=== PATIENT | female | born 1965 | race Two or more races ===

== ENCOUNTER → 2024-09-10 | Outpatient (CLI) | payer MEDICAID, SELFPAY ==
--- NOTE | 2024-09-10 12:44 | XR_ITS ---
Examination: Breast ultrasound, unilateral, left Date and time of exam: September 10, 2024 1303 hours INDICATIONS: Mammogram December 31, 2022 6:00 nodule 13 mm, left breast sonogram October 21, 2023 multiple nodules including 3:00 nodule 9 x 8 mm and 6:00 nodule 9 x 8 mm Technique: Real-time jonse scale ultrasonographic imaging performed left breast including all 4 quadrants as well as nipple retroareolar and axillary region. Findings: 6:00 oval mass circumscribed 6 x 6 mm 6:00 oval mass circumscribed 4 x 3 mm 10:00 cyst 5 x 4 mm 2:00 nodule lobular margins 9 x 5 mm 2:00 nodule 5 x 4 mm IMPRESSION: BI-RADS Category 3: Probably benign findings Continued 6 month left breast sonogram follow-up sonogram recommended to document stability of multiple solid nodules described above
--- NOTE | 2024-09-10 13:20 | XR_ITS ---
Examination: Diagnostic digital mammography, bilateral Computer aided detection 3-D breast Tomosynthesis, bilateral Date and time of exam: September 10, 2024 1335 hours INDICATIONS: Mammogram October 21, 2023 6:00 nodule 9 mm left breast Technique: Nonmagnified MLO, CC views of the breasts to been obtained, reconstructed from 3-D Tomosynthesis images. R2 computer aided detection program utilized for evaluation of suspicious masses and/or abnormal calcifications. 3-D Tomosynthesis images obtained. Findings: Scattered areas of fibroglandular density Stable nodules nipple level left breast and inner left breast on the CC view 6:00 and 2:00 benign nodules noted on left breast sonogram today Impression: BI-RADS Category 3: Probably benign findings One additional 6 month left mammogram follow-up is needed to document stability of nodules described above.
== END | disposition home or self-care (01) ==
PROVIDERS: PCP Family Medicine; Referring Provider Family Medicine; Visit Provider Family Medicine
DX: N63.25 Unspecified lump in the left breast, overlapping quadrants (principal); N63.21 Unspecified lump in the left breast, upper outer quadrant; N60.02 Solitary cyst of left breast
CPT/HCPCS: 76641; 77062; 77066; G0279

== ENCOUNTER → 2024-10-11 | Outpatient (CLI) | payer MEDICAID, SELFPAY ==
--- NOTE | 2024-10-11 15:00 | XR_ITS ---
Examination: Venous duplex lower extremity sonogram, bilateral. Date and time of exam: October 11, 2024 1452 hours INDICATIONS: Onset right leg pain beginning 3 years ago Technique: Multiple sonographic images of the deep venous system have been obtained. B-mode/2-D grayscale imaging of vascular structures and Doppler spectral analysis (waveforms) and color performed Both legs are examined. Findings: Deep venous systems do not demonstrate abnormal echogenicity. All visualized deep veins exhibit compressibility. All visualized deep veins exhibit augmentation. Impression: Negative for deep vein thrombosis
== END | disposition home or self-care (01) ==
PROVIDERS: PCP Family Medicine; Referring Provider Family Medicine; Visit Provider Family Medicine
DX: R60.0 Localized edema (principal)
CPT/HCPCS: 93970

== ENCOUNTER → 2024-12-27 | Outpatient (CLI) | payer MEDICAID, SELFPAY ==
--- NOTE | 2024-12-27 08:37 | XR_ITS ---
Examination: Foot, right, 3 views Technique: AP, oblique, lateral views foot, 3 views Date and time of exam: December 27, 2024 0853 hours INDICATIONS: Right foot pain years. FINDINGS: Mild bunion deformity Early osteoarthritis first metatarsophalangeal joint No fracture or dislocation IMPRESSION: Mild bunion deformity Early osteoarthritis first metatarsophalangeal joint
== END | disposition home or self-care (01) ==
LOC: CDIM 08:27
PROVIDERS: Referring Provider Nurse Practitioner Family; Visit Provider Nurse Practitioner Family
DX: M21.611 Bunion of right foot (principal); M19.071 Primary osteoarthritis, right ankle and foot
CPT/HCPCS: 73630

== ENCOUNTER → 2025-03-28 | Outpatient (CLI) | payer MEDICAID, SELFPAY ==
--- NOTE | 2025-03-28 10:20 | XR_ITS ---
Examination: CT lumbar spine, without contrast. 2-D sagittal reconstructions. 2-D coronal reconstructions. 3-D reconstructions. Date and time of exam:March 28, 2025 1039 hours INDICATIONS: Low back pain radiating to left leg beginning 2 weeks ago CTDI: vol (mGy):37.7 DLP: (mGycm):946 Technique Technique: Multiple 1.25 mm axial sections of the lumbar spine 2-D sagittal coronal reconstructions Low dose protocols, automated exposure control adjustment MA KV according to patient size FINDINGS: Adequate alignment lumbar vertebral bodies. No lumbar fracture or significant lumbar disc narrowing. No spondylolisthesis. L5-S1 no disc protrusion L4-L5 no disc protrusion L3-L4 no disc protrusion L2-L3 no disc protrusion L1-L2 no disc protrusion IMPRESSION: No focal lumbar disc protrusion Consider MRI lumbar spine without contrast follow-up
== END | disposition home or self-care (01) ==
PROVIDERS: PCP Nurse Practitioner Family; Referring Provider Nurse Practitioner Family; Visit Provider Nurse Practitioner Family
DX: M51.362 Other intervertebral disc degeneration, lumbar region with discogenic back pain and lower extremity pain (principal)
CPT/HCPCS: 72131

== ENCOUNTER → 2025-04-05 | Outpatient (CLI) | payer MEDICAID, SELFPAY ==
--- NOTE | 2025-04-05 | XR_ITS ---
Exam: MRI knee without contrast, right Date and time of exam: April 05, 2025, 0716 hours INDICATIONS: Diagnoses primary unilateral right knee osteoarthritis, right knee pain and joint clicking instability beginning August 11, 2024. Technique: Multiple axial, coronal, and sagittal sections on the knee have been obtained. T2-Weighted sagittal, fat-suppressed images, TR 3,500, TE 62, T2 weighted coronal fat-saturated images, TR 3,500, TE 62 Proton density sagittal sections, TR 1800, TE 31. T-1 weighted coronal images, TR 524, TE 13.0 Findings: Medial meniscus anterior horn truncation inner margin.. Medial meniscus, body horizontal linear tear communicating superior articular surface.. Posterior horn medial meniscus horizontal linear tear communicating superior articular surface.. Lateral meniscus anterior horn is truncation inner margin Lateral meniscus, body horizontal linear tear Posterior horn lateral meniscus is intact Anterior cruciate ligament complete tear Posterior cruciate ligament appears intact. Knee effusion is moderate. Quadriceps and patellar tendons appear intact. There is no evidence of tendinosis. Inflammatory change or fracture of Hoffa's fat pad is not seen. Medial patellar facet demonstrates moderate thinning. Lateral patellar facet cartilage demonstrates moderate thinning. Trochlear cartilage demonstrates moderate thinning. Marrow signal adequate. Medial collateral ligament appears intact. No meniscocapsular separation is seen. Illiotibial band and fibular collateral ligament are intact. Biceps femoris tendons appear intact. Medial femoral condylar articular cartilage demonstrates severe thinning. Lateral femoral condylar articular cartilage demonstratesmoderate thinning. Tibial plateau cartilage demonstrates severe medial thinning. Impression: Extensive medial and lateral meniscus tears Complete tear anterior cruciate ligament
== END | disposition home or self-care (01) ==
LOC: SMRI 06:50
PROVIDERS: PCP Nurse Practitioner Family; Referring Provider Nurse Practitioner Family; Visit Provider Nurse Practitioner Family
DX: S83.281A Other tear of lateral meniscus, current injury, right knee, initial encounter (principal); S83.241A Other tear of medial meniscus, current injury, right knee, initial encounter; S83.511A Sprain of anterior cruciate ligament of right knee, initial encounter; X58.XXXA Exposure to other specified factors, initial encounter
CPT/HCPCS: 73721